=== PATIENT | male | born 1965 | race Caucasian/White ===

== ENCOUNTER → 2020-12-10 | Outpatient (CLI) | payer MEDICARE | LOC: LAB 12:54 | PROVIDERS: ATTEND Student in an Organized Health Care Education/Training Program | DX: Z01.818 Encounter for other preprocedural examination (principal); H26.9 Unspecified cataract | CPT/HCPCS: 36415; 84132 ==

== ENCOUNTER → 2021-01-22 | Outpatient (CLI) | payer MEDICARE | LOC: LAB 06:02 | PROVIDERS: ATTEND Anesthesiology | DX: Z01.812 Encounter for preprocedural laboratory examination (principal) | CPT/HCPCS: 36415; 84132 ==